=== PATIENT | male | born 1950 | race Caucasian/White ===

== ENCOUNTER 2017-10-05 17:07 | Emergency (ER) | payer MEDICARE ==
[~2017-10-05] VITALS: Ht 190.5 cm; Wt 84.1 kg
[2017-10-05] MEDS ORDERED: AMLO-511 PO (17:12)
[2017-10-05] MEDS ORDERED: LISI-662 PO (17:12)
[2017-10-05] MEDS ORDERED: METF500T4 PO (17:12)
[2017-10-05] MEDS ORDERED: MIRT15 PO (17:12)
[2017-10-05] MEDS ORDERED: LAMO25 PO (17:12)
[2017-10-05] MEDS ORDERED: LOVA20 PO (17:12)
[2017-10-05] MEDS ORDERED: GLIP10 PO (17:12)
[2017-10-05] MEDS ORDERED: ABX (17:12)
[2017-10-05 18:30] LABS: APPEARANCE,URINE CLEAR (CLEAR); BILIRUBIN,URINE NEGATIVE (NEGATIVE); GLUCOSE, URINE (UA) 250 mg/dL (NEGATIVE); KETONES,URINE TRACE mg/dL (NEGATIVE); LEUKOCYTE ESTERASE ,URINE NEGATIVE (NEGATIVE); NITRATE,URINE NEGATIVE (NEGATIVE); OCCULT BLOOD,URINE LARGE (NEGATIVE); PROTEIN,URINE NEGATIVE (NEGATIVE); UROBILINOGEN,URINE 0.2 mg/dL (<=1.0)
[2017-10-05 18:55] LABS: RBC,URINE 51-100 /HPF (0-2)
[2017-10-05 18:56] LABS: BACTERIA,URINE Rare /HPF (None Seen); SQUAMOUS EPITHELIAL CELL,UR Rare /LPF (None Seen); WBC,URINE 0-2 /HPF (0-5)
[2017-10-05] MEDS ORDERED: TAMSULOSIN HCL 0.4 MG CAPSULE PO ONE (19:00)
[2017-10-05 19:18] LABS: GLUCOSE,POINT OF CARE 221 MG/DL (70-110)
[2017-10-05 20:54] VITALS: BP 143/93
== END 2017-10-05 21:21 | disposition home or self-care (01) ==
LOC: EMS 17:11
DX: R33.9 Retention of urine, unspecified (principal)
CPT/HCPCS: 51702; 82962; 99284

== ENCOUNTER 2017-10-07 08:29 | Emergency (ER) | payer MEDICARE ==
[~2017-10-07] VITALS: Ht 180.3 cm; Wt 90.0 kg
[~2017-10-07 08:29] MED LIST: ABX; AMLO-511 PO; GLIP10 PO; LAMO25 PO; LISI-662 PO; LOVA20 PO; METF500T4 PO; MIRT15 PO
[2017-10-07] MEDS ORDERED: TAMS0.4C32 PO (08:33)
[2017-10-07 08:43] LABS: GLUCOSE,POINT OF CARE 229 MG/DL (70-110)
[2017-10-07 09:45] VITALS: BP 139/79
== END 2017-10-07 10:10 | disposition home or self-care (01) ==
LOC: EMS 08:30
DX: Z46.6 Encounter for fitting and adjustment of urinary device (principal); I10 Essential (primary) hypertension; E78.00 Pure hypercholesterolemia, unspecified; E11.9 Type 2 diabetes mellitus without complications; Z88.1 Allergy status to other antibiotic agents
CPT/HCPCS: 82962; 99283